=== PATIENT | female | born 1990 | race Caucasian/White ===

== ENCOUNTER 2023-08-05 05:42 | Inpatient (IN) | payer OTHER ==
[~2023-08-05] VITALS: Ht 170.2 cm; Wt 74.1 kg
[2023-08-05] VITALS (22 sets, daily range): BP systolic 118–157; BP diastolic 58–95; PULSE 90–150; TEMP 98.1–98.5
[2023-08-05] MEDS ORDERED: LR 1,000 ML IV PRN (05:45)
--- NOTE | 2023-08-05 05:45 | NUR ---
0545- PT PRESENTS TO LDR COMPLAINING OF CONTRACTIONS AND LEAKING OF FLUID, TO LR4 PER WHEELCHAIR, CHANGED INTO GOWN. 0550- EFM X2 APPLIED. PT REPORTS LEAKING FLUID AT 0400. STATES SHE STARTED SULY AFTER THAT AND HAS GOTTEN MORE UNCOMFORTABLE. STATES SHE IS FEELING BABY MOVE. ALSO REPORTS SOME BLOODY SHOW. PLAN OF CARE FOR LABOR CHECK DISCUSSED AND QUESITONS ANSWERED. PT IS AGREEABLE AND GIVES CONSENT FOR SVE. 0555- AMNITRACE POSITIVE. POOLING FLUID NOTED. SVE BY THIS NURSE . PLAN OF CARE FOR ADMISSION DISCUSSED. 06- DR MCKEON CALLED AND UPDATED CHARTED. ADMISSION ORDERS RECEIVED. 06- REPORT TO VON Rivas RN.
[2023-08-05] MEDS ORDERED: LR 1,000 ML IV SCH (06:15)
[2023-08-05 06:58] LABS: BASO % 0.3 % (0.0-2.0); EOS # 0.1 K/mm3 (0.0-0.7); EOS % 0.8 % (0.0-4.0); GRAN # 4.8 K/mm3 (1.4-6.5); HEMOGLOBIN 11.7 g/dl (12.5-16.0); LYMPH # 2.5 K/mm3 (1.2-3.4); LYMPH % 31.5 % (20.0-51.0); MEAN CELL VOLUME 98 fl (80.0-100.0); MEAN CORPUSCULAR HEMOGLOBIN 34 pg (27-31); MEAN CORPUSCULAR HGB CONC 34 g/dl (33.0-37.0); MEAN PLATELET VOLUME 10.1 fl (7.4-10.4); MONO # 0.5 K/mm3 (0.1-0.6); MONO % 6.5 % (1.7-9.3); PLATELET COUNT 183 K/mm3 (130-400); RED BLOOD COUNT 3.49 M/mm3 (4.10-5.30); REDCELL DISTRIBUTION WIDTH-CV 12.7 % (11.5-14.5)
[2023-08-05 07:00] LABS: HEMATOCRIT 34.1 % (37.0-47.0)
[2023-08-05] MEDS ORDERED: PRENATAL TABLET PO (07:02)
[2023-08-05 07:16] LABS: ALBUMIN 3.1 gm/dL (3.5-5.0); BILIRUBIN,TOTAL 0.3 mg/dL (0.2-1.2); CALCIUM 9.6 mg/dL (8.4-10.2); CREATININE, serum 0.73 mg/dL (0.57-1.11); POTASSIUM 3.5 mmol/L (3.5-4.5); TOTAL PROTEIN 7.4 gm/dL (6.2-8.1)
--- NOTE | 2023-08-05 09:30 | NUR ---
0930THIKin RN ARRIVES TO TAKE OVER FOR VON OWENS AT THIS TIME. PT IS GETTING READY TO DELIVER SO VON OWENS STAYS. 1000AFTER DELIVERY, VON OWENS GIVES REPORT TO THIS RN. THIS RN ASSUMES CARE OF PT.
--- NOTE | 2023-08-05 09:52 | NUR ---
CARE OF PT TAKEN OVER AT 0620 REPORT SVE /-2 @0550. IV PLACED, LABS DRAWN, ASSESSMENTS AND VS DONE. 0725- SVE . 0726- CALLED DR DELGADO. REPORTED DR RAMIREZ PT [id number]. SVE /-2 AT 0550, NOW , PT IS GOING UNBLOCKED. DR DELGADO ASKED IF PT HAD ANY SIGNIFICANT HX. NO SIGNIFICANT HX, GBS NEG. DR DELGADO SAID SHE WAS ON HER WAY IN. 0745- DR DELGADO ON UNIT. 0756- PT REPORTED FEELING LIKE SHE WANTED TO PUSH. CALLED DR DELGADO TO UPDATE. DR DELGADO SAID TO GO AHEAD AND START PUSHING WITH THE PT. 0801- PT BEGAN PUSHING SHE FELT THE URGE TO DO SO. 0815- DR DELGADO AT BEDSIDE ASSESSING PUSHING EFFORTS. 0850- DR CALLOWAY AGAIN AT BEDSIDE ASSESSING PUSHING EFFORTS. 0933- CALLED CHARGE TO LET DR DELGADO KNOW THAT PT WAS GETTING CLOSE AND WAS ABOUT READY FOR HER. 0942- DR DELGADO AT BEDSIDE. 0952- SPONTANEOUS VAGINAL DELIVERY OF A VIABLE BABY BOY BY DR DELGADO. DELAYED CORD CLAMPING PER PT REQUEST. WAS PLACED ON MOM'S ABDOMIN, DRYED AND STIMULATED. CARE OF WAS TAKEN OVER BY NURSERY NURSE CEZAR. 0957- CORD CLAMPED AND CUT BY FOB. 0958- SPONTANEOUS DELIVERY OF PLACENTA BY DR DELGADO. REPAIR BEGAN OF A SECOND DEGREE LACERATION AND A BILATERAL LABIAL TEAR. QBL [address] DELGADO. PT REPOSITIONED. BLEEDING WNL. VS STABLE.
[2023-08-05] MEDS ORDERED: Phenylephrine/Mineral Oil/Petrolatum 57 GM TUBE RC PRN (10:30)
[2023-08-05] MEDS ORDERED: Magnes Hydrox (MOM) 80 MG/ML 30 ML CUP PO PRN (10:30)
[2023-08-05] MEDS ORDERED: Loratadine 10 MG TAB PO PRN (10:30)
[2023-08-05] MEDS ORDERED: Ibuprofen 800 MG TAB PO SCH (10:30)
[2023-08-05] MEDS ORDERED: Measles/Mumps/Rubella Virus Vaccine Live w Diluent 0.5 ML VIAL SQ SCH (10:30)
[2023-08-05] MEDS ORDERED: oxyCODONE 5 MG TAB PO PRN (10:30)
[2023-08-05] MEDS ORDERED: Mag/Al Hydrox/Simeth Susp 30 ML CUP PO PRN (10:30)
[2023-08-05] MEDS ORDERED: Naloxone 0.4 MG/ML VIAL IV PRN (10:30)
[2023-08-05] MEDS ORDERED: Acetaminophen 500 MG TAB PO SCH (10:30)
[2023-08-05] MEDS ORDERED: Witch Hazel 50% Pads Bulk TUB TP PRN (10:30)
[2023-08-05] MEDS ORDERED: LR & Oxytocin 500 ML IV SCH (12:30)
[2023-08-05] MEDS ORDERED: Sennosides/Docusate 8.6-50 MG TAB PO SCH (17:00)
[2023-08-05] MEDS ORDERED: traZODone 50 MG TAB PO PRN (21:00)
[2023-08-06 02:30] VITALS: BP 120/77; PULSE 103; TEMP 98
[2023-08-06 07:30] VITALS: BP 125/84; PULSE 102; TEMP 98.3
[2023-08-06] MEDS ORDERED: Prenatal Vitamins/Iron/FA TAB PO SCH (09:00)
[2023-08-06] MEDS ORDERED: IBU800 M1 PO (10:05)
== END 2023-08-06 18:00 | disposition home or self-care (01) | DRG 807 ==
LOC: LDRO 05:42 → LDR 05:43 → LDRO 07:18 → LDR 07:18 → OB 16:36
PROVIDERS: Obstetrics & Gynecology; ADMIT Student in an Organized Health Care Education/Training Program
PROC: 10E0XZZ Delivery of Products of Conception, External Approach (ICD-10-PCS; principal; 2023-08-05)
PROC: 0KQM0ZZ Repair Perineum Muscle, Open Approach (ICD-10-PCS; 2023-08-05)
PROC: 0UQMXZZ Repair Vulva, External Approach (ICD-10-PCS; 2023-08-05)
DX: O70.1 Second degree perineal laceration during delivery (principal); Z37.0 Single live birth; Z3A.38 38 weeks gestation of pregnancy
CPT/HCPCS: J2590; J7120